=== PATIENT | male | born 1950 | race Caucasian/White ===

== ENCOUNTER 2018-12-19 08:32 | Observation (INO) | payer MEDICARE, OTHER ==
[~2018-12-19] VITALS: Ht 170.2 cm; Wt 109.7 kg
[2018-12-19] VITALS (11 sets, daily range): BP systolic 120–161; BP diastolic 74–92
--- NOTE | ~2018-12-19 | D ---
[address] [address] DISCHARGE SUMMARY Name: JV NEGRON Kellen Room: [address] M.REnoch#: [id number] Admission: 12/19/18 Attend Phys: Larry Cummings MD Discharge: Date of : 48 Report #: [id number] THIS REPORT FOR: //name// CC: Louis Cummings MD [facility] DATE OF SERVICE: 12/20/2018 FINAL DISCHARGE DIAGNOSES: 1. Abnormal nuclear stress test with inducible lateral ischemia. 2. Coronary artery disease. 3. Status post coronary artery bypass grafting. 4. Hypertension. 5. Hyperlipidemia. 6. Status post percutaneous coronary intervention of the left main and ramona circumflex. PROCEDURES: On 12/19/2018 -- left heart catheterization, selective coronary arteriotomy, aortocoronary saphenous vein bypass graft study, CUNNINGHAM graft study, and percutaneous coronary intervention of the left main and circumflex with atherotomy/atherectomy of the left main with stenting and stenting of the circumflex. HOSPITAL COURSE: The patient is a 68-year-old male with known coronary artery disease with risk factors of hypertension and hyperlipidemia. He is status post remote coronary artery bypass grafting. He underwent recent nuclear stress testing, which revealed inducible lateral ischemia. Catheterization performed by Dr. Cummings revealed widely patent CUNNINGHAM graft to the LAD, patent graft to the diagonal and circumflex and patent graft to the right coronary artery. There was an ungrafted posterior division of the circumflex in the area of inducible ischemia. They asked me to review the films, and I have proceed with percutaneous coronary intervention, with angioplasty and stenting of the proximal and mid circumflex with one 2.0 x 26 mm Richard drug-eluting stent deployed at 2.25 mm with atherotomy/atherectomy followed by stenting of the left main coronary artery at the site of 80% stenosis with a 20% residual narrowing and 10% residual circumflex narrowing and DARLENE 3 flow of the distal circulation. The patient did well post-procedurally. There was good hemostasis at the right femoral site of catheterization. Lab revealed sodium 142, potassium 3.4, BUN 10, creatinine 0.9. Hemoglobin 9.9, white blood cell count 6000 with 170,000 platelets. He ambulated in [place] [address] DISCHARGE SUMMARY Name: JV NEGRON [address]: [address] [id number] Admission: 12/19/18 Attend Phys: Larry Cummings MD Discharge: Date of : 48 Report #: [id number] The patient was discharged to home on the following medications: Amitriptyline 25 mg at bedtime, enteric coated aspirin 81 mg every other day, carbidopa/levodopa 1.5 tablets b.i.d., carvedilol 12.5 mg at bedtime, furosemide 20 mg daily, Centrum Silver daily, Zyprexa 5 mg at bedtime, potassium chloride 10 mEq daily, ranitidine 300 mg b.i.d., simvastatin 40 mg at bedtime and ticagrelor 90 mg b.i.d. He is scheduled to return to see our nurse practitioner, Salome Bro at the [facility]. Thus, the patient is discharged to home in stable condition on 12/20/2018 with followup as iterated above on the above described medications. By: [id number] Morris MD, FACC /nt
--- NOTE | ~2018-12-19 | H ---
[address] [address] HISTORY AND PHYSICAL Name: JV NEGRON Room: [address] Mitchell Novak#: [id number] Admission: 12/19/18 Attend Phys: Larry Cummings MD Discharge: 12/20/18 Date of : 48 Report #: [id number] THIS REPORT FOR: //name// Please refer to the History and Physical performed in the physician's office. By: [id number] Records Staff AVERY /LIZ
[~2018-12-19 08:32] MED LIST: ASPIRIN81 M2 PO; AVODART0.5 MG; ENABLEX15 MG; METHOTREXATE 22.5 M1; PREDNISOLONE 5 M5 MG; SIMVASTATIN40 MG; TEKTURNA HCT 11 EACH
[2018-12-19 09:36] LABS: HEMATOCRIT 32.3 % (42.0-52.0); HEMOGLOBIN 10.4 gm/dL (14.0-18.0); MCH 24.5 pg (26.0-34.0); MCHC 32.1 g/dL (28.0-37.0); MCV 76.4 fL (80.0-100.0); MPV 8.5 fl. (7.2-11.1); RBC 4.23 mil/uL (4.50-6.00); RDW-CV 16.2 % (10.5-14.5); WBC 4.4 thou/uL (4.0-11.0)
[2018-12-19 09:49] LABS: ALBUMIN 3.6 g/dL (3.4-5.0); ALKALINE PHOSPHATASE 147 U/L (46-116); ANION GAP 10 mmol/L (7-16); BUN 14 mg/dL (7-18); CALCIUM 8.6 mg/dL (8.5-10.1); CHLORIDE 105 mmol/L (98-107); CHOLESTEROL 110 mg/dL (<200); CO2 27 mmol/L (21-32); CREATININE 0.8 mg/dL (0.6-1.3); GLUCOSE 127 mg/dL (70-99); HDL CHOLESTEROL 37 mg/dL (>40); LDL CHOLESTEROL 62 mg/dL (<100); POTASSIUM 3.9 mmol/L (3.5-5.1); SGOT 20 U/L (15-37); SGPT 17 U/L (30-65); SODIUM 142 mmol/L (136-145); TOTAL BILIRUBIN 0.3 mg/dL (<0.1-1.0); TOTAL PROTEIN 6.8 g/dL (6.4-8.2); TRIGLYCERIDE 58 mg/dL (<150); VLDL 12 mg/dL (<40)
[2018-12-19 09:50] LABS: SERUM ASSESSMENT Clear
[2018-12-19] MEDS ORDERED: CARVEDILOL12.5 MG PO (09:55)
[2018-12-19] MEDS ORDERED: AMITRIPTYLINE H25 M2 PO (09:55)
[2018-12-19] MEDS ORDERED: LASIX 20 MG TAB20 MG PO (09:57)
[2018-12-19] MEDS ORDERED: CARBIDOPA-LEVO1 EAC9 PO (09:57)
[2018-12-19 09:58] LABS: APTT 41.1 Seconds (25.0-31.3); PROTIME 10.4 Seconds (9.20-11.50)
[2018-12-19] MEDS ORDERED: KLOR-CON 1010 MEQ PO (09:58)
[2018-12-19] MEDS ORDERED: ZYPREXA5 MG PO (09:59)
[2018-12-19] MEDS ORDERED: ROXYBOND5 MG PO (10:02)
[2018-12-19] MEDS ORDERED: RANITIDINE HCL300 MG PO (10:04)
[2018-12-19] MEDS ORDERED: CENTRUM SILVER1 EAC2 PO (10:05)
--- NOTE | 2018-12-19 15:06 | EKG ---
[place] [address] ELECTROCARDIOGRAM REPORT Name: JV NEGRON Room: [address] IN .R.#: [id number] Admission: 12/19/18 Attend Phys: Larry Cummings MD Discharge: Date of : 48 Report #: [id number] THIS REPORT FOR: //name// [facility] Test Date: 2018-12-19 Test Time: 14:27:08 Pat Name: JV NEGRON Department: Room: [facility] Gender: M Assorter: : 1950 Requested By: Rainer Morris Order Number: [id number] Reading MD: Larry Cummings Measurements Intervals [place] Rate: 92 P: 44 SD: 160 QRS: 30 QRSD: 94 T: 40 QT: 357 QTc: 442 Interpretive Statements Sinus rhythm No previous ECG available for comparison Electronically Signed On 12-19-2018 15:06:20 CDT by Larry Cummings [email or web address] <ELECTRONICALLY SIGNED> By: Larry Cummings MD, [facility] 12/19/18 1506 1426 26 Larry Cummings MD, FACC /EPI
--- NOTE | 2018-12-19 15:06 | EKG ---
[place] [address] ELECTROCARDIOGRAM REPORT Name: JV NEGRON Room: [address] IN .R.#: [id number] Admission: 12/19/18 Attend Phys: Larry Cummings MD Discharge: Date of : 48 Report #: [id number] THIS REPORT FOR: //name// [facility] Test Date: 2018-12-19 Test Time: 09:34:52 Pat Name: JV NEGRON Department: Room: [facility] Gender: M Quality Tester: : 1950 Requested By: Larry Cummings Order Number: [id number] Reading MD: Larry Cummings Measurements Intervals [place] Rate: 91 P: 52 TN: 160 QRS: 21 QRSD: 100 T: 46 QT: 359 QTc: 442 Interpretive Statements Sinus rhythm No previous ECG available for comparison Electronically Signed On 12-19-2018 15:06:01 CDT by Larry Cummings [email or web address] <ELECTRONICALLY SIGNED> By: Larry Cummings MD, [facility] 12/19/18 1506 D: [id number] 3 Larry Cummings MD, FACC /EPI
--- NOTE | 2018-12-19 17:46 | NUR ---
PT ADMITTED AROUND 1345 PT IS ALERT AND ORIENTED X 4 PT C/O PAIN GACE PAIN MEDS WHICH PT STATES HELPED PT DENIES SOA ON RA, PT IS ON BEDREST TILL 1930 PT RIGHT GROIN IS SOFT SCANT BLOOD ON DRESSING NO CHANGES TO DRESSING NOTED, PT IS SR ON THE MONITOR, PT IS PLEASANT AND COOPERATIVE PT STATES PT NEEDS LEVEDOPA BOTH DOSES BEFORE 1500 THIS NURSE CALLED PHARMACY FOR TIME CHANGE AND GAVE PT SECOND DOSE BEFORE 1500 PT VITALS STABLE WILL CONTINE TO MONITOR
[2018-12-20] VITALS: BP 139/71
--- NOTE | 2018-12-20 00:16 | NUR ---
ASSUMED PT CARE @ 1930. PT DENIES CHEST OR GROIN INSERTION CARDIAC CATH SITE PAIN. DRESSING-SCANT RED DRAINAGE BUT DRY AND INTACT. C/O HEADACHE. PRN PAIN MEDS GIVEN W HS MEDS. EFFECTIVE. PT ABLE TO FALL ASLEEP AFTER MEDICATION. PT TOLERATED REGULAR DIET AND ABLE TO WALK TO THE BATHROOM INDEPENDENTLY WITH STEADY GAIT. STAYING THE NIGHT AT BEDSIDE. CALL LIGHT IN REACH. HOURLY ROUNDING FOR SAFETY.
[2018-12-20 04:00] VITALS: BP 108/64
[2018-12-20 05:37] LABS: HEMATOCRIT 29.1 % (42.0-52.0); HEMOGLOBIN 9.5 gm/dL (14.0-18.0); MCH 24.9 pg (26.0-34.0); MCHC 32.8 g/dL (28.0-37.0); MPV 9.2 fl. (7.2-11.1); RBC 3.83 mil/uL (4.50-6.00); RDW-CV 16.3 % (10.5-14.5)
[2018-12-20 05:59] LABS: ALBUMIN 3.3 g/dL (3.4-5.0); CALCIUM 8.5 mg/dL (8.5-10.1); CREATININE 0.9 mg/dL (0.6-1.3); POTASSIUM 3.4 mmol/L (3.5-5.1); TOTAL BILIRUBIN 0.4 mg/dL (<0.1-1.0); TOTAL PROTEIN 6.3 g/dL (6.4-8.2)
[2018-12-20 06:02] LABS: TROPONIN-I LEVEL 1.16 ng/mL (<0.06)
[2018-12-20 08:00] VITALS: BP 140/63
[2018-12-20] MEDS ORDERED: BRILINTA90 MG PO (10:03)
[2018-12-20] MEDS ORDERED: NITROGLYCERIN0.4 MG SUBLING (10:07)
[2018-12-20 10:19] VITALS: BP 157/86
[2018-12-20 10:21] VITALS: BP 157/86
[2018-12-20 11:43] VITALS: BP 135/72
--- NOTE | 2018-12-20 14:37 | NUR ---
ASSUMED CARE OF PATIENT THIS AM AT 0730. PATIENT IS ALERT AND ORIENTED X 4. HE C/O A HEADACHE THIS AM. PATIENT MEDICATED FOR PAIN X 1. HE VERBALIZED RELIEF OF PAIN. DR IN TO ROUND AND DISCHARGE ORDERS WRITTEN. IV FLUIDS DISCONTINUED. PATIENT GIVEN DISCHARGE INSTRUCTIONS, NEW PRESCRIPTIONS AND SAMPLE MEDICATION GIVEN. DELIA CATH FLUSHED AND DEACCESSED. TELE MONITOR DISCONTINUED AND PATIENT DISCHARGED TO HOME WITH PER W/C. CATH SITE INTACT AND WITHOUT HEMATOMA.
--- NOTE | 2018-12-20 15:59 | EKG ---
[place] [address] ELECTROCARDIOGRAM REPORT Name: JV NEGRON Room: [address]#: [id number] Admission: 12/19/18 Attend Phys: Larry Cummings MD Discharge: Date of : 48 Report #: [id number] THIS REPORT FOR: //name// [facility] Test Date: 2018-12-20 Test Time: 08:06:35 Pat Name: JV NEGRON Department: Room: [facility] Gender: M Paver: : 1950 Requested By: Rainer Morris Order Number: [id number] Sher MD: Rainer Morris Measurements Intervals [place] Rate: 91 P: 38 KS: 148 QRS: 30 QRSD: 98 T: 45 QT: 361 QTc: 445 Interpretive Statements Sinus rhythm Compared to ECG 12/19/2018 14:27:08 No significant changes Electronically Signed On 12-20-2018 15:59:32 CDT by Rainer Morris [email or web address] <ELECTRONICALLY SIGNED> By: Rainer Morris MD, [facility] 12/20/18 1559 D: 04805 5 Rainer Morris MD, FACC /EPI
--- NOTE | 2018-12-22 15:47 | CARD ---
[address] [address] CARDIAC CATH REPORT Name: JV NEGRON Room: [address] Mitchell Novak#: [id number] Admission: 12/19/18 Attend Phys: Larry Cummings MD Discharge: 12/20/18 Date of : 48 Report #: [id number] THIS REPORT FOR: //name// APPROVED REPORT Study performed: 12/19/2018 10:43:42 Patient Details Patient Status: Out-Patient Room #: The patient is a 68 year-old male Event Personnel Larry Cummings Hand Candle Dipper, Marly Mcgarry RN Purification Director, Felipe Merlos (R) Monitor, Hugo Dennison ScrubAlexandra John Quality Control Procedures Performed Left Heart Cath Coronaries, Bypass Grafts; atherotomy/atherectomy with stenting of the distal left main coronary artery; angioplasty with stenting of the proximalmid circumflex Indication Positive stress test Risk Factors Obesity, Hypercholesterolemia, Hypertension Previous Procedures/Diagnoses Previous CABG Admission/Lab Medications/Medications given during procedure Aspirin, Platelet Aff. Inhib., Angiomax bolus and infusion Procedure Narrative The patient was brought electively to the Cardiac Catheterization Laboratory and was prepped and draped in a sterile manner. The right femoral was infiltrated with 2% Lidocaine subcutaneous anesthesia. A 6fr Ultimum Sheath sheath was inserted into the right femoral artery. Coronary angiography was performed using coronary diagnostic catheters. The right coronary system was accessed and visualized with a Diagnostic JR 4 catheter. The left coronary system was accessed and visualized with a Diagnostic JL 4 catheter. The left ventricle was accessed and visualized with a Diagnostic Angled Pigtail catheter. Left ventricular/Aortic Valve gradient assessed via catheter pullback. Left ventriculogram was performed [place] [address] CARDIAC CATH REPORT Name: JV NEGRON Room: [address] [id number] Admission: 12/19/18 Attend Phys: Larry Cummings MD Discharge: 12/20/18 Date of : 48 Report #: [id number] Pre-demployment femoral angiogram was performed . Closure device was deployed with a Fr Angioseal STS 6Fr. The patient tolerated the procedure well and there were no complications associated with the procedure. Intraoperative Conscious Sedation Sedation start time: 11:11 Case end Time: 13:05 Fentanyl 25 mcg Versed 2 mg Fluoro Time: 39 minutes Dose: DAP [id number] cGycm2 6284 mGy Contrast Type and Amount: Visipaque 600 ml [place] Artery Percent Stenosis #1 widely patent CUNN[place]AM graft to the LAD #2 widely patent vein graft to a diagonal branch of the LAD #3 widely patent vein graft to the marginal circulation of the circumflex #4 widely patent vein graft to the distal right coronary artery with 50% tubular posterior descending branch narrowing Diagnostic Cath Left Main 75% tubular distal left main stenosis LAD 100% proximal occlusion Circumflex 90% proximal and mid circumflex stenoses with 75% proximal first marginal stenosis Right Coronary 100% proximal occlusion Hemodynamics The aortic pressure is 154/75 mmHg with a mean of 39 mmHg. The left ventricular pressure is 126/4 mmHg with a mean of mmHg. The left ventricular end diastolic pressure is 16 mmHg. There was no gradient across the aortic valve upon pullback. PCI Technique Lesion Anticoagulation was achieved with Angiomax. Patient was preloaded with Angiomax IV 15 ml. Percutaneous coronary intervention was performed on the circumflex artery atrioventricular groove continuation segment. The lesion stenosis prior to intervention was 90% with DARLENE 3 flow. A 6F XB LAD 3.5 Guide Catheter was used to engage the ostium. A IG: BMW 190cm Interventional Guidewire was used [place] [address] CARDIAC CATH REPORT Name: JV NEGRON Room: [address]#: [id number] Admission: 12/19/18 Attend Phys: Larry Cummings MD Discharge: 12/20/18 Date of : 48 Report #: [id number] BALLOON DILATION A Balloon catheter Trek RX 2.25 X 12 was inserted and inflated up to 10.00atm for 10seconds. Additional Inflation: 12.00atm for 9seconds. Additional Inflation: 14.00atm for 6seconds. STENT DEPLOYMENT A drug-eluting stent Richard RX Stent 2.0X26mm was inserted and inflated up to 18atm for 15seconds. POST STENT DEPLOYMENT BALLOON DILATION A Balloon catheter NC Trek RX 2.5 X 8 was inserted and inflated up to 15.00atm for 8seconds. Additional Inflation: 17.00atm for 9seconds. Additional Inflation: 18.00atm for 7seconds. Final angiography reveals 10 % stenosis with DARLENE 3 flow. BALLOON DILATION A Balloon catheter was inserted and inflated up to 22.00atm for 10seconds. Additional Inflation: 24.00atm for 7seconds. STENT DEPLOYMENT A drug-eluting stent Richard RX Stent 2.0X26mm was inserted and inflated up to 16.00atm for 9seconds. Additional Inflation: 20.00atm for 7seconds. POST STENT DEPLOYMENT BALLOON DILATION A Balloon catheter NC Trek RX 2.25 X 8 was inserted and inflated up to 18.00atm for 8seconds. Additional Inflation: 20.00atm for 7seconds. Additional Inflation: 24.00atm for 7seconds. PCI Technique Lesion 2 Percutaneous Coronary Intervention was performed on the LM. Patient was preloaded with Angiomax IV 15 ml. Percutaneous coronary intervention was performed on the distal left main coronary artery. The lesion stenosis prior to intervention was 75% with DARLENE 3 flow. A 6F XB LAD 3.5 Guide Catheter was used to engage the ostium. A IG: BMW 190cm Interventional Guidewire was used to cross the lesion. Balloon Dilation A Balloon catheter AngioSculpt PTCA 3.0 X 10mm was inserted and inflated up to 18atm for 8seconds. Additional Inflation: 18.00atm for 8seconds. Stent Deployment A drug-eluting stent Xience Malissa 3.5X8mm was inserted and inflated [address] [address] CARDIAC CATH REPORT Name: JV NEGRON Room: [address] Mitchell Novak#: [id number] Admission: 12/19/18 Attend Phys: Larry Cummings MD Discharge: 12/20/18 Date of : 48 Report #: [id number] up to 16.00atm for 10seconds. Additional Inflation: 18.00atm for 7seconds. Final angiography reveals 20 % stenosis with DARLENE 3 flow. PCI Technique Lesion Percutaneous coronary intervention was performed on the left main coronary artery. A 6F XB LAD 3.5 Guide Catheter was used to engage the ostium. A IG: BMW 190cm Interventional Guidewire was used to cross the lesion. BALLOON DILATION A Balloon catheter AngioSculpt PTCA 3.0 X 10mm was inserted and inflated up to 16.00atm for 14seconds. Additional Inflation: 18.00atm for 11seconds. PCI Technique Lesion 3 Percutaneous Coronary Intervention was performed on the LM. Conclusion #1 severe multivessel coronary artery disease characterized by the following: A 75% tubular distal left main coronary stenosis B 100% proximal LAD occlusion C 90% proximal and mid circumflex proximal occlusion with 75% first marginal stenosis D total occlusion of the dominant right coronary artery proximally #2 graft study characterized by the following: A widely patent [place] graft to the LAD B widely patent vein graft to a diagonal branch of the LAD C widely patent vein graft to the marginal system of the circumflex D widely patent vein graft to the distal right coronary artery with 50% tubular posterior [place] [address] CARDIAC CATH REPORT Name: JV NEGRON Room: [address]#: [id number] Admission: 12/19/18 Attend Phys: Larry Cummings MD Discharge: 12/20/18 Date of : 48 Report #: [id number] #3 normal left ventricular systolic function, estimated ejection fraction being 60% #4 mild elevation of left ventricular end-diastolic pressure at rest #5 successful percutaneous coronary intervention with deployment of drug-eluting stents at the site of 90% proximal and mid circumflex stenosis with 10% residual narrowing #6 successful atherotomy/atherectomy with stenting of the 75% distal left main coronary stenosis with 20% residual narrowing and DARLENE 3 flow to the circumflex system Recommendations Cardiac Risk Reduction Program Aggressive Medical Therapy Medications Administered Aspirin (any) Ticagrelor Diagnostic Cath Approved by: Larry Cummings MD Date/Time: 12/22/2018 15:45:02 <ELECTRONICALLY SIGNED> By: Rainer Morris MD, FACC 12/22/18 1546 1546 1546Jopaul Morris MD, FACC /INF
--- NOTE | 2018-12-26 17:30 | NUR ---
Patients left a message on the cardiac rehab answering machine requesting a return phone call, called her back this afternoon. She reported her had been at and was told he had many mini strokes, the had several questions about this. She stated the Dr that arielle farrell at was going to forward the MRI report to Dr. Cummings and her primary Dr. She had called the library circulation assistant office and left a message about her concerns. She wanted to know if this was dangerous and did she need to do anything for her . Informed her I did not feel I could advice her from what information I had, instructed her to call the library circulation assistant office back and let them know her concerns and questions.
== END 2018-12-20 13:00 | disposition home or self-care (01) ==
LOC: M.CL 08:32 → M.TBA-CV 13:20 → M.2W 13:20 → M.CL 13:20 → M.2W 13:20 → M.TBA-CV 13:41 → M.2W 13:48
PROVIDERS: Internal Medicine; ADMIT Internal Medicine Cardiovascular Disease
DX: I25.10 Atherosclerotic heart disease of native coronary artery without angina pectoris (principal); I10 Essential (primary) hypertension; E78.5 Hyperlipidemia, unspecified; R93.1 Abnormal findings on diagnostic imaging of heart and coronary circulation; E66.9 Obesity, unspecified; E78.00 Pure hypercholesterolemia, unspecified; Z95.1 Presence of aortocoronary bypass graft; Z98.61 Coronary angioplasty status